=== PATIENT | male | born 1965 | race Caucasian/White ===

== ENCOUNTER 2018-02-24 12:13 | Inpatient (IN) | payer BC ==
[~2018-02-24] VITALS: Ht 170.2 cm; Wt 64.9 kg
[2018-02-24] MEDS ORDERED: NALOXONE PREFILLED SYRINGE 2 MG/2 ML SYRINGE ONE (12:31)
--- NOTE | 2018-02-24 12:38 | NUR ---
NARCAN 2MG IVP GIVEN, NO EFFECT. HR FROM 40-50 TO 60-70. MD MADE AWARE
[2018-02-24 12:41] LABS: APPEARANCE,URINE Clear (CLEAR); BILIRUBIN,URINE Negative (NEGATIVE); BLOOD, URINE Negative Ery/uL (NEGATIVE); COLOR,URINE Yellow (YELLOW); KETONES,URINE Negative (NEGATIVE); LEUKOCYTE ESTERASE ,URINE Negative (NEGATIVE); NITRITE, URINE Negative (NEGATIVE); PROTEIN,URINE Negative (NEGATIVE); UGLUCOSE Negative (NEGATIVE); UROBILINOGEN,URINE 0.2 EU/dL (0.2)
[2018-02-24 12:44] LABS: BASOPHILS % (AUTO) 0.6 % (0.0-2.0); EOSINOPHILS % (AUTO) 0.6 % (0.0-6.0); HEMATOCRIT 42 % (39-51); HEMOGLOBIN 14.5 g/dL (13.5-17.5); LYMPHOCYTES # (AUTO) 1.6 /CMM (0.8-4.8); LYMPHOCYTES % (AUTO) 27.6 % (20.0-44.0); MEAN CORPUSCULAR HGB CONC 34 g/dl (31.0-36.0); MEAN CORPUSCULAR VOLUME 95 fL (80-96); MONOCYTES # (AUTO) 0.4 /CMM (0.1-1.30); MONOCYTES % (AUTO) 6.9 % (2.0-12.0); NEUTROPHILS # (AUTO) 3.7 /CMM (1.8-8.9); NEUTROPHILS % (AUTO) 64.3 % (43.0-81.0); PLATELET COUNT (AUTO) 255 /CMM (150-450); RED BLOOD CELL COUNT(AUTO) 4.46 MIL/uL (4.5-6.0); WHITE BLOOD COUNT (AUTO) 5.7 K/uL (4.3-11.0)
--- NOTE | 2018-02-24 12:46 | NUR ---
CALLED POISON ON THE PHONE WITH DR ENRIQUEZ.
[2018-02-24 12:52] LABS: CALCIUM, SERUM 9.1 mg/dL (8.5-10.1); CARBON DIOXIDE 31 mmol/L (21-32); CHLORIDE 105 mmol/L (98-107); CREATININE 0.9 mg/dL (0.6-1.3); GLUCOSE 102 mg/dL (74-106); POTASSIUM 3.7 mmol/L (3.5-5.1); SODIUM SERUM 140 mmol/L (136-145); UREA NITROGEN, BLOOD 14 mg/dL (7-18)
[2018-02-24 12:59] LABS: ACETAMINOPHEN 0 ug/ml (10-30); ALANINE AMINOTRANSFERASE 35 U/L (12-78); ALBUMIN 3.8 g/dL (3.4-5.0); ALCOHOL, BLOOD < 3 mg/dL (0-0); ALKALINE PHOSPHATASE 48 U/L (46-116); ASPARTATE AMINOTRANSFERASE 24 U/L (15-37); BILIRUBIN,DIRECT 0.1 mg/dL (0.0-0.2); BILIRUBIN,TOTAL 0.6 mg/dL (0.2-1.0); SALICYLATE 0.5 mg/dL (2.8-20.0); TOTAL PROTEIN, SERUM 6.6 g/dL (6.4-8.2)
[2018-02-24] MEDS ORDERED: IV NS 0.9% 1,000 ML BAG IV ONE (13:00)
[2018-02-24] MEDS ORDERED: NALOXONE HCL 0.4 MG/ML AMPUL IV ONE (13:00)
[2018-02-24 13:01] LABS: CREATINE KINASE, TOTAL 201 U/L (39-308)
--- NOTE | 2018-02-24 13:27 | NUR ---
PT UNRESPONSIVE, SNORING, RR EVEN & UNLABORED, SKIN PINK WARM & DRY. ON DRAGLINE ENGINEER, SR & NO ECTOPY NOTED. WILL CONT TO MONITOR.
--- NOTE | 2018-02-24 14:34 | NUR ---
PT UNRESPONSIVE, SNORING, RR EVEN & UNLABORED, SKIN PINK WARM & DRY. ON START UP SPECIALIST, SR & NO ECTOPY NOTED. WILL CONT TO MONITOR.
--- NOTE | 2018-02-24 15:13 | NUR ---
JENNIFER received a call from ED stating pt's friend's would like to speak with JENNIFER. JENNIFER met with pt's friend's Jerry Catherine and Param in ED. According to Jerry, he and the pt. were in a 20 year old relationship and split up 1 1/2 year ago. Jerry states that pt. has threatened him several times in the past that he will attempt to commit suicide, however this is the first time pt. has done so. Pt. left a suicide note bedside as well. Pt. is suppose to fly out to [facility] on 02/26. According to Jerry, pt. will not be able to go back to reside with his friend Param. Pt. has limited funds at this time. Pt. has a psychiatrist named Jose López . Jerry states that pt. might have Borderline Personality that has not been officially diagnosed. Jerry would like to a call when software configuration manager is called and he would like to speak to software configuration manager as well. JENNIFER informed pt's ANNALISE Anna regarding Jerry's request and gave him Jerry's contact number .
--- NOTE | 2018-02-24 15:30 | NUR ---
SPOKE TO TOAN FROM POISON CONTROL, NO TREATMENT FOR NOW & CONT TO MONITOR PER TOAN.
[2018-02-24] MEDS ORDERED: ONDANSETRON HCL/PF 4 MG/2 ML VIAL IVP PRN (17:00)
[2018-02-24] MEDS ORDERED: MAG HYDROX/AL HYDROX/SIMETH 30 ML UDC PO PRN (17:00)
[2018-02-24] MEDS ORDERED: ACETAMINOPHEN 325 MG TABLET PO PRN (17:00)
[2018-02-24] MEDS ORDERED: MAGNESIUM HYDROXIDE 30 ML UDC PO PRN (17:00)
[2018-02-24] MEDS ORDERED: Z GUARD REMEDY 2 OZ OINT TP PRN (17:00)
--- NOTE | 2018-02-24 17:18 | NUR ---
REPORT GIVEN TO LIAM WODOY FOR ROGER.
[2018-02-24 17:35] VITALS: BP 144/94
--- NOTE | 2018-02-24 19:30 | NUR ---
RN INITIAL SHIFT NOTES RECEIVED PATIENT IN BED, AWAKE, ALERT AND ORIENTED X1 TO NAME AND DATE, BUT CONFUSED REGARDING THE DATE, MOSTLY WITH GARBLED AND NONSENSICAL SPEECH. BREATHING EVEN AND NONLABORED, TOLERATING O2 VIA NC @ 3LPM WELL, NO RESPIRATORY DISTRESS NOTED AT THIS TIME. TELEMETRY MONITORING SHOWS SINUS RHYTHM, HR OF 84 BPM AT THIS TIME. PATIENT ABLE TO UTILIZE URINAL, WILL MONITOR URINE OUTPUT. IV SITES PATENT AND INTACT, FLUSHED WITH NS, FREE FROM ANY S/S OF INFILTRATION OR PHLEBITIS. CALL LIGHT LEFT WITHIN EASY REACH. 1:1 SITTER AT BEDSIDE. WILL CLOSELY MONITOR
--- NOTE | 2018-02-24 19:45 | NUR ---
SEEMA RN NOTE RECEIVED PATIENT FROM THE ER AT 17:35 ACCOMPANIED BY LEMUEL RN. PATIENT NOTED TO BE CONFUSED, SPEECH IS VERY HARD TO UNDERSTAND, PATIENT JUMPING FROM SUBJECT TO SUBJECT NOT MAKING MUCH SENSE. CANNOT REMEMBER THE NAME OF THIS HOSPITAL. IRRITATED WITH BEING QUESTIONED ABOUT HIS CURRENT MEDICAL CONDITIONS. NO RESPIRATORY DISTRESS NOTED. PER DIRECTOR SOFTWARE QUALITY ASSURANCE, PATIENT OK ON ROOM AIR BUT ON NASAL CANNULA AT 3LPM TO SUPPORT RESPIRATORY STATUS. NO COMPLAINT OF PAIN AT THIS TIME. ORIENTED TO UNIT, CONNECTED TO CAMPUS ADMINISTRATIVE ASSISTANT, SINUS RHYTHM WITH A HEART RATE IN THE 90S ON THE EXTERNAL TELE MONITOR. VITAL SIGNS STABLE, PULSES PALPABLE. PATIENT VOIDED USING THE URINAL. SITTER AT BEDSIDE DUE TO PATIENT'S SUICIDAL IDEATION. ASKED PATIENT IF HE FEELS SUICIDAL, STATES YES. UNABLE AND/OR UNWILLING TO PROVIDE INFORMATION ABOUT HIS MEDICAL BACKGROUND AND PERSONAL INFORMATION. FRUSTRATED WITH BEING ASKED QUESTIONS. PATIENT WANTING TO LEAVE, REMINDED PATIENT THAT HE IS IN THE HOSPITAL TO GET BETTER AND TO BE SAFE. WANTED TO SPEAK WITH FRIEND RENE. CALLED RENE WHO EXPLAINED THAT PER HIS KNOWLEDGE, PATIENT DOES NOT HAVE ANY MEDICAL CONDITIONS, THAT MOST HEALTH ISSUES ARE PSYCH RELATED. RENE ALSO SAID HE WOULD COME TO THE HOSPITAL TOMORROW ON 02/25 AND PROVIDE PATIENT'S HOME MEDICATION PRESCRIPTION INFORMATION. PATIENT'S SKIN IS INTACT. CALL LIGHT WITHIN REACH, BED IN LOW LOCKED POSITION, ALARM ON, SITTER AT BEDSIDE. ENDORSED TO CHLORINATOR NURSE FOR CONTINUITY OF CARE.
[2018-02-24 20:00] VITALS: BP 138/88
[2018-02-24] MEDS: IV NS 0.9% 1,000 ML IV PRN (21:26)
--- NOTE | 2018-02-24 22:00 | NUR ---
RN NOTES SPOKE TO TOAN FROM POISON CONTROL, NO TREATMENT FOR NOW & CONT TO MONITOR PER TOAN.
--- NOTE | 2018-02-25 | NUR ---
BODY SANDER NOTES PATIENT RESTING IN BED, REMAINS ALTERED, BUT MENTAL STATUS IMPROVING. WILL MONITOR CLOSELY
[2018-02-25 04:00] VITALS: BP 129/86
[2018-02-25 06:49] LABS: BASOPHILS # (AUTO) 0.1 /CMM (0.0-0.2); BASOPHILS % (AUTO) 0.4 % (0.0-2.0); EOSINOPHILS % (AUTO) 0.3 % (0.0-6.0); HEMATOCRIT 44 % (39-51); HEMOGLOBIN 14.7 g/dL (13.5-17.5); LYMPHOCYTES # (AUTO) 1.7 /CMM (0.8-4.8); LYMPHOCYTES % (AUTO) 13.3 % (20.0-44.0); MEAN CORPUSCULAR HGB CONC 34 g/dl (31.0-36.0); MEAN CORPUSCULAR VOLUME 95 fL (80-96); MONOCYTES # (AUTO) 0.8 /CMM (0.1-1.30); MONOCYTES % (AUTO) 5.8 % (2.0-12.0); NEUTROPHILS # (AUTO) 10.5 /CMM (1.8-8.9); NEUTROPHILS % (AUTO) 80.2 % (43.0-81.0); PLATELET COUNT (AUTO) 234 /CMM (150-450); RED BLOOD CELL COUNT(AUTO) 4.61 MIL/uL (4.5-6.0)
--- NOTE | 2018-02-25 07:00 | NUR ---
RN CLOSING NOTES PATIENT NOW AWAKE, ALERT AND ORIENTED X 2/3, STILL WITH PERIODS OF CONFUSION, BUT IMPROVING. WILL ENDORSE THE PATIENT TO THE AM SHIFT NURSE FOR CONTINUITY OF CARE
--- NOTE | 2018-02-25 07:15 | NUR ---
RN INITIAL NOTES: Rec'd pt on bed, A/O x 3, anxious & verbalized that he wanted to leave the hospital. On room air, not on any distress. On telemonitor, SR. Has DEANDRE G20 PL & LAC G20 SL, patent & intact w/ no s/sx of infection/infiltration noted, DEANDRE G20 has NS x 100 cc/hr infusing well. 1:1 sitter at bedside. Safety precautions in place. Call light w/in reach. Will cont to monitor & attend pt needs.
[2018-02-25 07:20] LABS: CREATININE 0.9 mg/dL (0.6-1.3); PHOSPHORUS 2.9 mg/dL (2.5-4.9)
--- NOTE | 2018-02-25 07:45 | NUR ---
Faxed [facility] consult request to [facility] c/o robotics technologist. Per [facility], its Dr. Coffey who is wind commissioning technician today.
--- NOTE | 2018-02-25 07:47 | NUR ---
RN asked if he still thinking of hurting himself, pt stated, "I have depression and if I go [place] to [place] I still going to do it." Left VM to pt's friend Jerry [phone], to bring pt's LV bag per his request. Addendum: 02/25/18 at 0811 by ESTEFANIA PETTIT RN Pt also left VM to Jerry (friend). Sent MMS to pt's friend Jerry per pt's request.
[2018-02-25] MEDS: IV NS 0.9% 1,000 ML IV PRN (07:50)
[2018-02-25 08:00] VITALS: BP 139/80
--- NOTE | 2018-02-25 08:11 | NUR ---
Per pt he is allergic to PCN & ASA.
--- NOTE | 2018-02-25 09:00 | NUR ---
Pt c/o that he has not given any food or water. Pt was provided with water & some snacks from start of shift. Awaiting MD's order for diet.
[2018-02-25] MEDS ORDERED: FINA5TAB11 PO (09:27)
[2018-02-25] MEDS ORDERED: ESZO3TAB27 PO (09:27)
[2018-02-25] MEDS ORDERED: ALPR0.5T8 PO (09:27)
--- NOTE | 2018-02-25 10:46 | NUR ---
Called Dr. Guthrie, pt referred to MD gordon/alexandria agitation (pt threatening to renetta the hospital for keeping him here) & wanting to leave the hospital. Per , he is medically cleared and may call the the Crisis Team to evaluate the pt. Called [facility] [phone], spoke w/ Kingsley & informed her that pt needs crisis eval team as ordered d/t agitation & wanting to leave AMA. Made her aware that this is Dr. Guthrie's order & that pt has not yet seen by Dr. Coffey but consult has already been ordered. Tried calling Dr. Coffey's phone # [phone] (given from [facility]), left a VM. Also called his office phone# [phone], left VM. Rec'd call from Steve Wynn, endorsed to her pt's history & current status. Rec'd call from Adi (crisis team), on his way to see pt. Addendum: 02/25/18 at 1107 by ESTEFANIA PETTIT RN Addendum: Per , may order regular diet.
--- NOTE | 2018-02-25 11:45 | NUR ---
Rec'd call from Jerry (pt's friend), stated that he will drop off pt's things in the hospital but no intention to see the pt as he is the "trigger" why this all happened.
--- NOTE | 2018-02-25 11:55 | NUR ---
Pt seen & examined by Adi from Crisis Team.
[2018-02-25 12:00] VITALS: BP 143/94
--- NOTE | 2018-02-25 12:48 | NUR ---
SEEMA Le contacted SW to inform her that pt's friend Jerry and mobile pet groomer Adi Johansen are meeting with the pt. SW met with the pt, Jerry and mobile pet groomer. According to Adi, patient does not meet criteria for WIC 5150 and can be discharged if medically cleared as well. Patient was provided low-cost no cost MH resources in the [facility]. Patient is scheduled to leave for his flight to [facility] at 1900 on 02-26-18. Pt. appears to be angry with his friend/ex-partner Jerry and continued to ask him questions regarding finances, cheating etc. Pt. states, his belongings are at his friend Param's house. SW spoke to Param via phone who informed SW he will bring pt's clothing and transport him back to the house to meat pickler his clothing/ belongings. Pt. also spoke with Param and confirmed he will bring his clothing to [facility] and transport him. Pt. was able to say goodbye to his friend/ex-partner Jerry since he will not be seeing him. Per ANNALISE Zhang, pt. is medically cleared for discharge. No other social service needs are requested at this time. SW is available, if needed.
--- NOTE | 2018-02-25 13:07 | NUR ---
Adi from Crisis Team was able to talk to the pt's friend Jerry & discussed about pt current condition, status & plan of care. Jerry was able to talk to the pt as well. Jerry brought pt's belongings and handed over to the pt. Per Adi, pt will not be place on 5150 hold as pt doesn't have active plan of hurting himself as of this time. This was discussed w/ pt's friend Jerry at length & verbalized understanding. Adi was also able to speak w/ the dining chair seat cushion trimmer psych MD Dr. Bran. greenhouse worker Meg was also made aware about plan of care. Per Dr. Guthrie, pt is okay to be DC to home, self care. was able to talk to Adi over the phone.
--- NOTE | 2018-02-25 14:14 | NUR ---
HUMAN PERFORMANCE CONSULTANT NOTES: Pt DC'd to home, self care as ordered. Pt was also cleared from Crisis Team (Adi). Dr. Coffey was able to see & examined pt prior to DC, was also able to talk to Adi over the phone & discussed pt case. DC instructions provided to the pt w/ verbalization of understanding. DC documents signed by pt. IV line access removed, pressure dressing applied w/ no s/sx of infection. All belongings w/ pt. Pt's friend Param came & brought his other things. Pt left facility in stable condition, ambulatory, accompanied by PACKING MACHINE PILOT CAN ROUTER & friend. No concern/issues identified upon DC.
== END 2018-02-25 14:10 | disposition home or self-care (01) | DRG 918 ==
LOC: ER 12:19 → TELE-TD 17:35
PROVIDERS: ADMIT Family Medicine; ATTEND Family Medicine
DX: T42.4X2A Poisoning by benzodiazepines, intentional self-harm, initial encounter (principal); I10 Essential (primary) hypertension; G43.909 Migraine, unspecified, not intractable, without status migrainosus; G47.00 Insomnia, unspecified; R53.82 Chronic fatigue, unspecified; T42.6X2A Poisoning by other antiepileptic and sedative-hypnotic drugs, intentional self-harm, initial encounter; K21.9 Gastro-esophageal reflux disease without esophagitis; I49.9 Cardiac arrhythmia, unspecified; Y92.009 Unspecified place in unspecified non-institutional (private) residence as the place of occurrence of the external cause; F32.9 Major depressive disorder, single episode, unspecified
CPT/HCPCS: 36415; 80048-TC; 80061-TC; 80076-TC; 80305; 81000-TC; 82550-TC; 83735-TC; 84100-TC; 85025-TC; 87081-TC; G0378; G0480; J2310; J7030